=== PATIENT | female | born 1995 ===

== ENCOUNTER 2019-06-20 21:41 | Emergency (ER) | payer MEDICAID ==
[2019-06-20] MEDS ORDERED: NS 0.9% 1000 ml BAG 1,000 ML IV ONE (21:47)
[2019-06-20 22:40] LABS: ABS Eosinophils 0.2 10^3/ul (0-0.6); ABS Lymphocytes 3.1 10^3/ul (1.0-4.8); ABS Monocytes 0.6 10^3/ul (0-0.8); Hematocrit 41 % (35-47); Lymphocyte % 20.9 %; Mean Corpuscular HGB Conc 32 g/dL (31-36); Mean Corpuscular Hemoglobin 22 pg (27-31); Mean Corpuscular Volume 69 fL (80-97); Mean Platelet Volume 8.7 fL (7.4-10.4); Nucleated Red Blood Cells % 0.1; Platelet Count 529 10^3/uL (150-450); Red Blood Count 5.95 10^6 /uL (3.70-4.87); Red Cell Distribution Width 17 % (10-15); White Blood Count 14.9 10^3/uL (3.5-10.8)
[2019-06-20 22:56] LABS: Albumin 4.4 g/dL (3.2-5.2); Albumin/Globulin Ratio 1.2 (1-3); BUN/Creatinine Ratio 25.7 (8-20); C Reactive Protein 15.03 mg/L (<8.01); Calcium 9.4 mg/dL (8.6-10.3); EGFR African American 118.7 (>60); EGFR Non-African American 98.1 (>60); Globulin 3.6 g/dL (2-4); Potassium 3.5 mmol/L (3.5-5.0); Total Bilirubin 0.2 mg/dL (0.2-1.0)
[2019-06-20 23:03] LABS: HCG Pregnancy 0.72 mIU/mL
[2019-06-21] MEDS ORDERED: Iohexol 300 (CONTRAST) 10 ML SDV IV ONE (00:32)
[2019-06-21 00:34] LABS: Urine Appearance Turbid; Urine Color Red
[2019-06-21 00:38] LABS: Urine Bilirubin Negative (Negative); Urine Blood 3+ (Negative); Urine Glucose Negative (Negative); Urine Ketones Negative (Negative); Urine Nitrite Negative (Negative); Urine Protein 3+(>=500 mg/dL) (Negative); Urine Specific Gravity 1.033 (1.010-1.030); Urine Urobilinogen Negative (Negative)
[2019-06-21 00:42] LABS: Urine Bacteria Absent (Absent); Urine Red Blood Cell 3+(>10/hpf) (Absent); Urine Squamous Epithelial Cell Present (Absent); Urine White Blood Cell Trace(0-5/hpf) (Absent)
[2019-06-21] MEDS ORDERED: NS 0.9% 1000 ml BAG 1,000 ML IV ONE (01:14)
[2019-06-21 02:28] VITALS: BP 113/63
== END 2019-06-21 02:28 | disposition home or self-care (01) ==
LOC: ED 21:41

== ENCOUNTER 2019-09-13 11:50 | Inpatient (IN) ==
[2019-09-13 12:46] LABS: ABS Eosinophils 0.1 10^3/ul (0-0.6); ABS Lymphocytes 1.8 10^3/ul (1.0-4.8); ABS Monocytes 0.6 10^3/ul (0-0.8); ABS Neutrophils 6.4 10^3/ul (1.5-7.7); Eosinophil % 1.5 %; Hematocrit 33 % (35-47); Hemoglobin 10.4 g/dL (12.0-16.0); Lymphocyte % 19.9 %; Mean Corpuscular HGB Conc 32 g/dL (31-36); Mean Corpuscular Hemoglobin 21 pg (27-31); Mean Corpuscular Volume 65 fL (80-97); Mean Platelet Volume 7.7 fL (7.4-10.4); Nucleated Red Blood Cells % 0.1; Platelet Count 410 10^3/uL (150-450); Red Blood Count 5.02 10^6 /uL (3.70-4.87); Red Cell Distribution Width 18 % (10-15); White Blood Count 8.9 10^3/uL (3.5-10.8)
[2019-09-13 12:59] LABS: ALT 12 U/L (7-52); AST 11 U/L (13-39); Albumin 3.8 g/dL (3.2-5.2); Albumin/Globulin Ratio 1.2 (1-3); Alkaline Phosphatase 95 U/L (34-104); Anion Gap 6 mmol/L (2-11); BUN/Creatinine Ratio 13.3 (8-20); Blood Urea Nitrogen 10 mg/dL (6-24); CO2 Carbon Dioxide 23 mmol/L (22-32); Calcium 8.6 mg/dL (8.6-10.3); Chloride 106 mmol/L (101-111); EGFR African American 115.9 (>60); EGFR Non-African American 95.8 (>60); Globulin 3.3 g/dL (2-4); Glucose 98 mg/dL (70-100); Potassium 3.6 mmol/L (3.5-5.0); Sodium 135 mmol/L (135-145); Total Protein 7.1 g/dL (6.4-8.9)
[2019-09-13 13:32] LABS: Acetaminophen < 15 mcg/mL; Alcohol, S < 10 mg/dL (<10); Salicylate < 2.50 mg/dL (<30)
[2019-09-13 13:36] LABS: Urine Appearance Cloudy; Urine Bilirubin Negative (Negative); Urine Blood Negative (Negative); Urine Color Yellow; Urine Glucose Negative (Negative); Urine Ketones Negative (Negative); Urine Nitrite Negative (Negative); Urine Protein Negative (Negative); Urine Specific Gravity 1.015 (1.010-1.030); Urine Urobilinogen Negative (Negative)
[2019-09-13 13:38] LABS: Urine Bacteria Absent (Absent); Urine Red Blood Cell Trace(0-2/hpf) (Absent); Urine Squamous Epithelial Cell Present (Absent); Urine White Blood Cell 1+(6-10/hpf) (Absent)
[2019-09-13 13:49] LABS: Urine Benzodiazepine Screen None Detected (None Detect); Urine Cannabinoids Screen None Detected (None Detect); Urine Opiates Screen None Detected (None Detect)
[2019-09-13] MEDS ORDERED: Al Hydrox/Mg Hydrox/Simet LIQ 30 ML UDC PO PRN (18:16)
[2019-09-13] MEDS ORDERED: Nicotine GUM 2MG FRUIT FLAVOR PO PRN (19:00)
[2019-09-13] MEDS: Nicotine PATCH 14 MG/24 HR PATCH TRANSDERM SCH (22:41)
[2019-09-14] MEDS: Nicotine PATCH 14 MG/24 HR PATCH TRANSDERM SCH (12:57)
[2019-09-14] MEDS: Vitamin THERAPEUTIC TAB PO SCH (12:57)
[2019-09-14 18:03] LABS: HCG Pregnancy < 0.60 mIU/mL
[2019-09-14 18:12] LABS: TSH Ultra Thyroid Stim Horm 2.95 mcIU/mL (0.34-5.60)
[2019-09-15 07:26] LABS: HDL Cholesterol 37.4 mg/dL
[2019-09-15] MEDS: Nicotine PATCH 14 MG/24 HR PATCH TRANSDERM SCH (09:17)
[2019-09-15] MEDS: Venlafaxine XR 75 mg PO SCH (09:17)
[2019-09-15] MEDS: Vitamin THERAPEUTIC TAB PO SCH (09:17)
[2019-09-16] MEDS: Venlafaxine XR 75 mg PO SCH (10:50)
[2019-09-16] MEDS: Nicotine PATCH 14 MG/24 HR PATCH TRANSDERM SCH (10:50)
[2019-09-16] MEDS: Vitamin THERAPEUTIC TAB PO SCH (10:50)
[2019-09-17] MEDS: Venlafaxine XR 75 mg PO SCH (09:58)
[2019-09-17] MEDS: Vitamin THERAPEUTIC TAB PO SCH (09:58)
[2019-09-17] MEDS: Nicotine PATCH 14 MG/24 HR PATCH TRANSDERM SCH (09:58)
[2019-09-18 09:22] VITALS: BP 141/74
[2019-09-18] MEDS: Vitamin THERAPEUTIC TAB PO SCH (11:22)
[2019-09-18] MEDS: Nicotine PATCH 14 MG/24 HR PATCH TRANSDERM SCH (11:22)
[2019-09-18] MEDS: Venlafaxine XR 75 mg PO SCH (11:22)
== END 2019-09-18 13:30 | disposition home or self-care (01) | DRG 751 ==
LOC: ED 11:50 → BSU 17:51
PROVIDERS: ADMIT Psychiatry & Neurology Psychiatry; ATTEND Psychiatry & Neurology Psychiatry

== ENCOUNTER 2021-01-02 21:32 | Inpatient (IN) ==
[2021-01-02 22:59] LABS: ABS Eosinophils 0.1 10^3/ul (0-0.6); ABS Lymphocytes 1.7 10^3/ul (1.0-4.8); ABS Monocytes 0.5 10^3/ul (0-0.8); ABS Neutrophils 6.8 10^3/ul (1.5-7.7); Eosinophil % 1.4 %; Hematocrit 32 % (35-47); Hemoglobin 9.5 g/dL (12.0-16.0); Lymphocyte % 19.1 %; Mean Corpuscular HGB Conc 30 g/dL (31-36); Mean Corpuscular Hemoglobin 18 pg (27-31); Mean Corpuscular Volume 61 fL (80-97); Platelet Count 442 10^3/uL (150-450); Red Blood Count 5.17 10^6 /uL (3.70-4.87); Red Cell Distribution Width 18 % (10-15); White Blood Count 9.1 10^3/uL (3.5-10.8)
[2021-01-02 23:10] LABS: Acetaminophen < 15 mcg/mL; Alcohol, S < 13 mg/dL (<13); Salicylate < 2.50 mg/dL (<30)
[2021-01-02 23:12] LABS: ALT 8 U/L (7-52); AST 10 U/L (13-39); Albumin 4.1 g/dL (3.2-5.2); Albumin/Globulin Ratio 1.2 (1-3); Alkaline Phosphatase 134 U/L (35-149); Anion Gap 9 mmol/L (2-11); Blood Urea Nitrogen 10 mg/dL (6-24); CO2 Carbon Dioxide 25 mmol/L (22-32); Chloride 103 mmol/L (101-111); Globulin 3.4 g/dL (2-4); Glucose 112 mg/dL (70-100); Potassium 3.4 mmol/L (3.5-5.0); Sodium 137 mmol/L (135-145); Total Protein 7.5 g/dL (6.4-8.9)
[2021-01-02 23:18] LABS: HCG Pregnancy < 0.60 mIU/mL
[2021-01-03 00:37] LABS: Microcytosis 2+
[2021-01-03 00:38] LABS: Anisocytosis 1+; Hypochromasia 2+
[2021-01-03 04:22] LABS: Urine Appearance Cloudy; Urine Bilirubin Negative (Negative); Urine Blood 2+ (Negative); Urine Color Yellow; Urine Glucose Negative (Negative); Urine Ketones Negative (Negative); Urine Nitrite Negative (Negative); Urine Protein Negative (Negative); Urine Specific Gravity 1.023 (1.002-1.030); Urine Urobilinogen Negative (Negative)
[2021-01-03 04:27] LABS: Urine Bacteria Absent (Absent); Urine Red Blood Cell Trace(0-2/hpf) (Absent); Urine Squamous Epithelial Cell Present (Absent); Urine White Blood Cell Trace(0-5/hpf) (Absent)
[2021-01-03 04:54] LABS: Urine Benzodiazepine Screen None Detected (None Detect); Urine Cannabinoids Screen None Detected (None Detect); Urine Opiates Screen None Detected (None Detect)
[2021-01-03 06:09] LABS: Rapid COVID-19 Molecular Undetected (Undetected)
[2021-01-03] MEDS ORDERED: Al Hydrox/Mg Hydrox/Simet LIQ 30 ML UDC PO PRN (12:01)
[2021-01-03] MEDS: Nicotine GUM 2MG FRUIT FLAVOR PO PRN ×2 (18:38→22:37)
[2021-01-04] MEDS: Vitamin THERAPEUTIC TAB PO SCH (08:55)
[2021-01-04] MEDS: Nicotine GUM 2MG FRUIT FLAVOR PO PRN ×2 (08:55→21:12)
[2021-01-04 08:56] LABS: HDL Cholesterol 42.9 mg/dL
[2021-01-04] MEDS: Nicotine PATCH 14 MG/24 HR PATCH TRANSDERM SCH (09:01)
[2021-01-05] MEDS: Nicotine PATCH 14 MG/24 HR PATCH TRANSDERM SCH (11:33)
[2021-01-05] MEDS: Vitamin THERAPEUTIC TAB PO SCH (11:33)
[2021-01-06] MEDS: Vitamin THERAPEUTIC TAB PO SCH (08:53)
[2021-01-06] MEDS: Nicotine PATCH 14 MG/24 HR PATCH TRANSDERM SCH (08:53)
[2021-01-06] MEDS: Nicotine GUM 2MG FRUIT FLAVOR PO PRN (08:54)
[2021-01-07] MEDS: Nicotine PATCH 14 MG/24 HR PATCH TRANSDERM SCH (11:19)
[2021-01-07] MEDS: Vitamin THERAPEUTIC TAB PO SCH (11:20)
[2021-01-07] MEDS: Nicotine GUM 2MG FRUIT FLAVOR PO PRN (17:29)
[2021-01-08] MEDS: Nicotine PATCH 14 MG/24 HR PATCH TRANSDERM SCH (07:43)
[2021-01-08 08:22] LABS: % Iron Saturation 3 % (15-55); Iron 20 ug/dL (50-212); Total Iron Binding Capacity 617 mcg/dL (250-450); Transferrin 441 mg/dL (203-362); Unsaturated Iron Binding < 602 ug/dL
[2021-01-08 08:43] LABS: Ferritin 1.8 ng/mL (11-307)
[2021-01-08] MEDS: Vitamin THERAPEUTIC TAB PO SCH (08:50)
[2021-01-08] MEDS: Nicotine GUM 2MG FRUIT FLAVOR PO PRN (18:32)
[2021-01-09] MEDS: Vitamin THERAPEUTIC TAB PO SCH (09:24)
[2021-01-09] MEDS: Nicotine GUM 2MG FRUIT FLAVOR PO PRN (09:26)
[2021-01-09 10:08] VITALS: BP 144/75
[2021-01-09] MEDS: Nicotine PATCH 14 MG/24 HR PATCH TRANSDERM SCH (11:23)
== END 2021-01-09 14:30 | disposition home or self-care (01) | DRG 751 ==
LOC: ED 21:32 → BSU 01-03 04:20
PROVIDERS: ADMIT Psychiatry & Neurology Psychiatry; ATTEND Psychiatry & Neurology Psychiatry